=== PATIENT | male | born 1990 | race Two or more races ===

== ENCOUNTER 2024-01-27 18:42 | Inpatient (IN) | payer MEDICARE, OTHER ==
[~2024-01-27] VITALS: Ht 172.7 cm; Wt 67.2 kg
[2024-01-27 21:14] LABS: Basophils # (auto) 0 10 ^3/uL (0-0.2); Basophils % (auto) 0.3 % (0.0-2.0); Eosinophils # (auto) 0.6 10 ^3/uL (0-0.8); Eosinophils % (auto) 5.6 % (0.0-7.0); Hematocrit 44.5 % (41.0-53.0); Hemoglobin 15.1 g/dL (13.5-17.5); Lymphocytes # (auto) 2.4 10 ^3/uL (0.4-5.4); Mean Corpuscular Hemoglobin 32.6 pg (28.0-32.0); Mean Corpuscular Volume 95.8 fL (80.0-100.0); Monocytes # (auto) 0.8 10 ^3/uL (0-1.3); Monocytes % (auto) 7.7 % (0.0-12.0); Neutrophils # (auto) 6.6 10 ^3/uL (1.6-8.6); Neutrophils % (auto) 63.4 % (37.0-80.0); Red Blood Cells 4.64 10^6/uL (4.5-5.90); Red Cell Distribution Width 13.3 % (11.8-14.3); White Blood Cell 10.3 10^3/uL (4.4-10.8)
[2024-01-27 21:28] LABS: Anion Gap 6 (5-15); Carbon Dioxide 27 mmol/L (20-30); Chloride 106 mmol/L (98-107); Sodium 139 mmol/L (136-145)
[2024-01-27 21:29] LABS: Calcium 9.5 mg/dL (8.5-10.1)
[2024-01-27 21:34] LABS: BUN/Creatinine Ratio 10.6 (10.0-20.0); Blood Alcohol < 3.0 mg/dL (<10); Blood Urea Nitrogen 10 mg/dL (9-23); Glucose 95 mg/dL (74-106)
[2024-01-28] MEDS ORDERED: cefTRIAXone 1GM/50ML D5W 50 ML IV ONE (01:45)
[2024-01-28] MEDS ORDERED: TEMAZEPAM 15 MG CAP PO PRN (03:00)
[2024-01-28] MEDS ORDERED: ACETAMINOPHEN 325 MG TAB PO PRN (03:00)
[2024-01-28] MEDS ORDERED: ONDANSETRON HCL 4 MG/2 ML VIAL IV PRN (03:00)
[2024-01-28] MEDS ORDERED: HYDROcodone-ACET 5/325MG TAB PO PRN (03:00)
[2024-01-28 09:26] VITALS: BP 102/45; PULSE 55; RESP 16; TEMP 97.7; O2SAT 96
[2024-01-28 11:49] VITALS: BP 100/62; PULSE 53; RESP 16; TEMP 98; O2SAT 98
[2024-01-28 11:58] VITALS: BP 110/84; PULSE 60; RESP 18; TEMP 97.7; O2SAT 94
[2024-01-28 13:17] VITALS: BP 110/84; PULSE 60; RESP 18; TEMP 97.7; O2SAT 94
[2024-01-28] MEDS: CLINDAMYCIN 600MG IV 50 ML IV SCH (14:22)
[2024-01-28 17:00] VITALS: BP 142/64; PULSE 94; RESP 18; TEMP 97.5; O2SAT 95
[2024-01-28 21:00] VITALS: BP 117/69; PULSE 65; RESP 18; TEMP 98.1; O2SAT 97
[2024-01-28 23:01] LABS: Amphetamine Screen, Urine Neg (NEGATIVE); Barbiturate Scree,Urine Neg (NEGATIVE); Benzodiazephine Screen, Urine Neg (NEGATIVE); Cocaine Screen, Urine Neg (NEGATIVE); Opiate Scree,Urine Neg (NEGATIVE)
[2024-01-28 23:02] LABS: Cannabinoid Screen, Urine Neg (NEGATIVE); Phencyclidine Screen, Urine Neg (NEGATIVE)
[2024-01-29 01:00] VITALS: BP 95/62; PULSE 63; RESP 18; TEMP 97.5; O2SAT 97
[2024-01-29 05:00] VITALS: BP 115/70; PULSE 70; RESP 18; TEMP 98; O2SAT 93
[2024-01-29] MEDS: CLINDAMYCIN 600MG IV 50 ML IV ONE (06:01)
[2024-01-29 06:27] LABS: Chloride 108 mmol/L (98-107); Sodium 143 mmol/L (136-145)
[2024-01-29 06:28] LABS: Anion Gap 10 (5-15); Calcium 9.5 mg/dL (8.7-10.4); Carbon Dioxide 25 mmol/L (20-30)
[2024-01-29 06:33] LABS: BUN/Creatinine Ratio 12.1 (10.0-20.0); Blood Urea Nitrogen 11 mg/dL (9-23); Glucose 87 mg/dL (74-106)
[2024-01-29 09:00] VITALS: BP 112/65; PULSE 69; RESP 18; TEMP 98.2; O2SAT 95
[2024-01-29] MEDS ORDERED: DOCU-94 PO (14:03)
[2024-01-29] MEDS ORDERED: MAGN400S25 PO (14:03)
[2024-01-29] MEDS ORDERED: ACET-1881 PO (14:03)
[2024-01-29] MEDS ORDERED: BISA10SU45 RE (14:03)
[2024-01-29 15:30] VITALS: BP 110/62; PULSE 66; RESP 18; TEMP 98.3; O2SAT 95
[2024-01-29 21:00] VITALS: BP 103/74; PULSE 55; RESP 16; TEMP 98.1; O2SAT 96
[2024-01-30 01:00] VITALS: BP 102/67; PULSE 60; RESP 16; TEMP 98; O2SAT 98
[2024-01-30 05:00] VITALS: BP 101/64; PULSE 52; RESP 16; TEMP 98; O2SAT 98
[2024-01-30 09:00] VITALS: BP 95/35; PULSE 63; RESP 20; TEMP 98.6; O2SAT 95
[2024-01-30] MEDS ORDERED: KETO2CRE4 TOP (10:04)
[2024-01-30 12:42] VITALS: BP 100/64; PULSE 57; RESP 20; TEMP 98.7; O2SAT 94
[2024-01-30 17:00] VITALS: BP 105/73; PULSE 76; RESP 20; TEMP 98.7; O2SAT 97
[2024-01-30 21:00] VITALS: BP_SYST 102; BP_SYST 111; BP_DIAS 57; BP_DIAS 69; PULSE 53; PULSE 76; RESP 16; RESP 18; TEMP 98.1; TEMP 98.5; O2SAT 93; O2SAT 97
[2024-01-30] MEDS: KETOCONAZOLE 2 % TOPICAL CREAM 15GM TOP SCH (22:27)
[2024-01-31 01:00] VITALS: BP 103/63; PULSE 66; RESP 17; TEMP 98; O2SAT 95
[2024-01-31 05:02] VITALS: BP 109/62; PULSE 60; RESP 17; TEMP 98.1; O2SAT 95
[2024-01-31 08:30] VITALS: BP 101/63; PULSE 64; RESP 20; TEMP 97.6; O2SAT 97
[2024-01-31 13:00] VITALS: BP 101/64; PULSE 59; RESP 20; TEMP 97.8; O2SAT 99
[2024-01-31 17:04] VITALS: BP 106/64; PULSE 65; RESP 20; TEMP 98.2; O2SAT 97
[2024-01-31 21:00] VITALS: BP 100/51; PULSE 48; RESP 17; TEMP 98.1; O2SAT 96
[2024-02-01 00:52] VITALS: BP 103/64; PULSE 66; RESP 17; TEMP 98.1; O2SAT 97
[2024-02-01 05:00] VITALS: BP 103/67; PULSE 58; RESP 17; TEMP 98; O2SAT 96
[2024-02-01 09:00] VITALS: BP 102/60; PULSE 67; RESP 18; TEMP 97.6; O2SAT 96
[2024-02-01 13:00] VITALS: BP 110/56; PULSE 61; RESP 18; TEMP 97.7; O2SAT 98
== END 2024-02-01 19:45 | DRG 300 ==
LOC: ER 18:46 → OVERFLOW 01-28 02:50 → EAST 01-28 09:16 → WEST WING 01-28 11:58
PROVIDERS: ADMIT Family Medicine; ATTEND Family Medicine
DX: I83.015 Varicose veins of right lower extremity with ulcer other part of foot (principal); E44.0 Moderate protein-calorie malnutrition; L97.519 Non-pressure chronic ulcer of other part of right foot with unspecified severity; B35.3 Tinea pedis; F03.90 Unspecified dementia, unspecified severity, without behavioral disturbance, psychotic disturbance, mood disturbance, and anxiety; F20.9 Schizophrenia, unspecified; Z68.22 Body mass index [BMI] 22.0-22.9, adult; B35.2 Tinea manuum; B35.1 Tinea unguium
CPT/HCPCS: 36415; 73630; 80048; 80307; 80320; 85025; 87081; 93970; 97110; 97116; 97163; 97530; G0378; J3490